=== PATIENT | female | born 1950 | race Caucasian/White ===

== ENCOUNTER → 2017-01-16 | Outpatient (CLI) | payer MEDICARE, OTHER ==
--- NOTE | 2017-01-16 13:38 | KCIC ---
DATE: 01/16/2017 EXAM: MAMMO GALILEO SCREENING BILATERAL HISTORY: Routine screening COMPARISON: Previous study from 2016, 2013 and 2012 This study was interpreted with the benefit of Computerized Aided Detection (CAD). FINDINGS: Breast Density: SCATTERED The breast parenchyma shows scattered fibroglandular densities. Breast parenchyma level B. The skin and nipples are within normal limits. There is an area of architectural distortion in the right outer breast measuring 1.0 x 0.8 cm approximately 5.7 cm from the nipple on CC view. On MLO view this is above the posterior nipple line likely at 10:00 position. Oval shaped mass with partially circumscribed margins is seen in the central right breast measuring 1.1 x 1.5 cm and approximately 4 cm from the nipple on CC view. On MLO view this is above the posterior nipple line likely at 12:00 position. Left breast show no mammographic abnormality. IMPRESSION: 1. Right upper outer breast architectural distortion is more prominent when compared to prior study and should be further evaluated with spot compression views and ultrasound. 2. Right breast oval-shaped mass likely simple cyst also seen on previous mammogram. This can be evaluated with ultrasound concurrently when evaluating the above mentioned architectural distortion. BI-RADS CATEGORY: 0 INCOMPLETE: NEED ADDITIONAL IMAGING EVAULATION AND/OR PRIOR MAMMOGRAMS FOR COMPARISON RECOMMENDED FOLLOW-UP: ADD ADDITIONAL IMAGING. Spot compression view of the right upper outer breast for evaluation of architectural distortion and ultrasound of the upper outer breast for evaluation of oval-shaped mass.. PQRS compliance statement: Patient information was entered into a reminder system with a target due date for the next mammogram. Mammography is a sensitive method for finding small breast cancers, but it does not detect them all and is not a substitute for careful clinical examination. A negative mammogram does not negate a clinically suspicious finding and should not result in delay in biopsying a clinically suspicious abnormality. "Our facility is accredited by the [employer] Mammography Program."
== END | disposition home or self-care (01) ==
LOC: KCIC MAMMO 09:01
PROVIDERS: ATTEND Family Medicine
DX: Z12.31 Encounter for screening mammogram for malignant neoplasm of breast (principal)
CPT/HCPCS: 77063; G0202; 77067

== ENCOUNTER → 2017-01-26 | Outpatient (CLI) | payer MEDICARE, OTHER ==
[~2017-01-26] MED LIST: ASPI-630 PO; OMEP20TA8 PO; SPIR25TA3 PO; TRAZ50TA15 PO
--- NOTE | 2017-01-26 14:48 | KCIC ---
DATE: 01/26/2017 EXAM: DIGITAL DIAGNOSTIC RT, BREAST RIGHT HISTORY: Architectural distortion seen on the screening examination COMPARISON: Screening examination 10 days earlier This study was interpreted with the benefit of Computerized Aided Detection (CAD). FINDINGS: Breast Density: SCATTERED The breast parenchyma shows scattered fibroglandular densities. Breast parenchyma level B. Coned compression MLO and CC images were obtained as well as an ML image. On all of the images a spiculated mass is seen corresponding to that seen on the screening examination. The mammographic features are very suggestive of malignancy. The well defined oval density immediately adjacent to the spiculated mass (medial) is not optimally appreciated on the cone compression images but is perhaps seen on the MLO image Targeted ultrasound was performed. Corresponding to the spiculated mass in the right breast is a hypoechoic shadowing mass measuring approximately 1.7 x 1.1 cm. An additional finding is not seen. The well-defined mass seen on the screening examination is likely benign. The diagnostic examination was interpreted off-site. The recommendation for biopsy of the spiculated and shadowing mass was provided by the vascular technologist sonographer who performed that portion of the exam. IMPRESSION: Spiculated mass right breast very suspect for malignancy. Ultrasound-guided biopsy advised. BI-RADS CATEGORY: 4 SUSPICIOUS ABNORMALITY-BIOPSY SHOULD BE CONSIDERED RECOMMENDED FOLLOW-UP: BIO BIOPSY RECOMMENDED PQRS compliance statement: Patient information was entered into a reminder system with a target due date soon for the next mammogram. Mammography is a sensitive method for finding small breast cancers, but it does not detect them all and is not a substitute for careful clinical examination. A negative mammogram does not negate a clinically suspicious finding and should not result in delay in biopsying a clinically suspicious abnormality. "Our facility is accredited by the [employer] Mammography Program."
== END | disposition home or self-care (01) ==
LOC: KCIC MAMMO 12:54
PROVIDERS: ATTEND Family Medicine
DX: N63.10 Unspecified lump in the right breast, unspecified quadrant (principal)
CPT/HCPCS: 76641; G0206; 77065

== ENCOUNTER → 2017-03-02 | Day surgery (SDC) | payer MEDICARE, OTHER ==
[~2017-03-02] MED LIST changes: +HYDROmorphone 2 MG/ML VIAL IV PRN; +IV RINGERS,LACTATED 1000ML 1,000 ML IV SCH; +LIDOCAINE 1% PF 2 ML VIAL. ID PRN; +MORPHINE SULFATE 2 MG/ML DISP.SYRIN. IV PRN; +ONDANSETRON PF 4 MG/2 ML VIAL. IV PRN; +PROCHLORPERAZINE 10 MG/2 ML VIAL. IV PRN; +PROPOFOL 20 ML IV ONE; +fentaNYL PF VIAL 100 MCG/2 ML VIAL IV PRN
[2017-03-02 08:05] VITALS: BP 115/62
--- NOTE | 2017-03-02 17:56 | HP ---
ADMIT DATE: 03/02/2017 REFERRING PHYSICIAN: Dr. John Faustin. REASON FOR ADMISSION: History of Rose's. HISTORY OF PRESENT ILLNESS: A 66-year-old female whose past medical history is significant for Rose's, asthma, hypertension, diverticulosis as well as recently diagnosed breast cancer, is seen for surveillance endoscopy, had Rose's dating back approximately 4 years. She has been on acid suppressive therapy since with good control of her symptoms. Risk factors for reflux are positive for caffeine, but negative for alcohol and nicotine. Weight and appetite have been stable. There has been no melena and/or hematemesis and she is otherwise without additional complaints. PAST MEDICAL HISTORY: Rose's, hypertension, endometriosis, diverticulosis, recently diagnosed breast cancer. ALLERGIES: PENICILLIN, SULFA, ACETAMINOPHEN, OXYCODONE. MEDICATIONS: Include aspirin 81 mg daily, omeprazole 20 mg daily, spironolactone 25 mg daily, trazodone 50 mg daily. FAMILY AND SOCIAL HISTORY: Significant for diabetes with her mother, esophageal and stomach cancer with paternal grandfather, MIs with her mother and paternal grandmother. REVIEW OF SYSTEMS: Per records. PHYSICAL EXAMINATION: GENERAL: Reveals a well-nourished, well-developed, female. VITAL SIGNS: Temperature is 97.1, pulse 80, respirations 20. HEENT: Normocephalic and atraumatic head. Pupils and extraocular muscles not tested. Sclerae anicteric. NECK: Supple. LUNGS: Clear. CARDIOVASCULAR: Reveals an S1, S2 without S3, S4 or appreciable murmur. ABDOMEN: Reveals soft abdomen, normal bowel sounds without appreciable splenomegaly. EXTREMITIES: Reveals no cyanosis, clubbing or edema. IMPRESSION: Rose's surveillance was recommended at this time. Risks and benefits of procedure have been previously discussed including risk of hemorrhage or perforation. She is willing to proceed at this time. Thank Dr. Faustin for allowing us to consult and participate in this patient's care. GABRIELA SMITH MD DR: BASIL/abdias JOB#: [id number] / [id number]
--- NOTE | 2017-03-05 15:12 | PATHOLOGY ---
PATHOLOGY REPORT * * * * * * * * FINAL DIAGNOSIS: Esophageal biopsies, distal esophagus: - Segments of mildly hyperplastic squamous esophageal mucosa with focally contiguous specialized columnar epithelium consistent with Rose's change. COMMENT: Sections of the distal esophageal biopsy reveal segments of mildly hyperplastic squamous esophageal mucosa with focal contiguous columnar lined mucosa showing mild chronic inflammation and focal intestinal metaplasia with goblet cells, consistent with Rose's change. There is no dysplasia or evidence of malignancy. (JPM:pit; 03/05/2017) REPORT ELECTRONICALLY SIGNED BY: Bruce Hernández M.D. DATE/TIME: 03/05/2017 15:11 * * * * * * * * GROSS PATHOLOGY: Received in formalin labeled "Brenton Henning, distal esophagus, BX," are 3 segments of hinojosa soft tissue measuring 1.5 x 0.2 x 0.2 cm in aggregate dimensions and ranging from 0.4 to 0.6 cm in maximum dimension. The specimen is submitted entirely in cassette A1. (TSD; 03/02/2017) INITIAL CPT CODE(S): A; 64754 Professional services performed [place] [address] Technical services performed by [facility] at [address] [place] [address], [facility] [address] [address]. SPECIMEN(S) RECEIVED: A.Distal esophagus biopsy CLINICAL HISTORY: History of Rose's PATIENT: BRENTON HENNING /AGE: 408/13/1950 (Age: 66) PATIENT #: [id number] ALT CASE #: SPECIMEN COLLECTION DATE: 03/02/2017 SPECIMEN RECEIVED DATE: 03/02/2017 [facility] - [address] [place] [address] - PHONE: [phone] * * * END OF REPORT * * *
== END | disposition home or self-care (01) ==
LOC: ENDOS 06:29
PROVIDERS: ATTEND Internal Medicine Gastroenterology
DX: K22.70 Barrett's esophagus without dysplasia (principal); K29.50 Unspecified chronic gastritis without bleeding; I10 Essential (primary) hypertension; Z88.0 Allergy status to penicillin; Z88.2 Allergy status to sulfonamides; Z88.8 Allergy status to other drugs, medicaments and biological substances; Z83.3 Family history of diabetes mellitus; Z80.0 Family history of malignant neoplasm of digestive organs; Z85.3 Personal history of malignant neoplasm of breast
CPT/HCPCS: 43239; 88305; J2704

== ENCOUNTER → 2018-05-24 | Outpatient (CLI) | payer MEDICARE, OTHER ==
[2017-03-02 08:05] VITALS: BP 115/62
[~2018-05-24] MED LIST changes: -HYDROmorphone 2 MG/ML VIAL IV PRN; -IV RINGERS,LACTATED 1000ML 1,000 ML IV SCH; -LIDOCAINE 1% PF 2 ML VIAL. ID PRN; -MORPHINE SULFATE 2 MG/ML DISP.SYRIN. IV PRN; -ONDANSETRON PF 4 MG/2 ML VIAL. IV PRN; -PROCHLORPERAZINE 10 MG/2 ML VIAL. IV PRN; -PROPOFOL 20 ML IV ONE; -SPIR25TA3 PO; +SPIR25TA5 PO; +TRAZ-85 PO; -TRAZ50TA15 PO; -fentaNYL PF VIAL 100 MCG/2 ML VIAL IV PRN
--- NOTE | 2018-05-24 15:32 | KCIC ---
CERVICAL SPINE 5V History: Acute neck pain, right shoulder pain Comparison: None. Findings: 5 views cervical spine are submitted. There is adequate alignment of lateral masses C1 relative to C2. There is mild reversal of the lordotic curvature centered near C4-5. There is mild to moderate degenerative disc disease C6-7, to lesser degree C4-5 and C5-6. There is spondylosis at the same levels. There is very mild grade 1 anterior spondylolisthesis at C3-C4. There is multilevel facet degenerative change. There is also uncovertebral degenerative change. There is neural foramina compromise greatest on the left C5-6 and C6-7. Impression: 1. There is multilevel degenerative disc disease greatest C6-7 and to lesser degree C5-C6 and C4-5. There is multilevel facet and uncovertebral degenerative change. Electronically signed by: Darron Avilez MD (05/24/2018 3:27 PM) [id number]
== END | disposition home or self-care (01) ==
LOC: KCIC 13:55
PROVIDERS: ATTEND Family Medicine
DX: M50.321 Other cervical disc degeneration at C4-C5 level (principal); M47.812 Spondylosis without myelopathy or radiculopathy, cervical region; M43.12 Spondylolisthesis, cervical region; M25.511 Pain in right shoulder; Z88.0 Allergy status to penicillin; Z88.2 Allergy status to sulfonamides
CPT/HCPCS: 72050

== ENCOUNTER → 2019-11-05 | Outpatient (CLI) | payer MEDICARE, OTHER ==
[2017-03-02 08:05] VITALS: BP 115/62
[~2019-11-05] MED LIST changes: +TRAZ-118 PO; -TRAZ-85 PO
--- NOTE | 2019-11-05 13:11 | KCIC ---
EXAM: DUAL ENERGY X-RAY ABSORPTIOMETRY (DEXA). HISTORY: Postmenopausal screening. FINDINGS: The lowest measured T-score is -1.1 in the left hip, based on a bone mineral density of 0.806 g/cm^2. Refer to the worksheets for full detail. No comparison examinations are available. IMPRESSION: Low bone mass. Bone mineral density yields a T-score between -1.0 and -2.5. Fracture risk is increased. FRAX was not calculated. METHODOLOGY: Dual energy x-ray absorptiometry was performed to measure bone mineral density. The following analysis is based on the 2019 Official Positions of the International Society for Clinical Densitometry: Measurements of the hips and the average of L1-L4 are preferred. When the spine and/or hip cannot be feasibly measured or interpreted, or in the setting of hyperparathyroidism, distal radial bone mineral density may be measured. The lumbar spine T-score is based on the average bone mineral density of L1-L4. In the setting of artifact or anatomic abnormality, some lumbar levels may be excluded, and the remaining levels used for calculation. A single lumbar level is not used for diagnosis, and if only a single level is available for assessment, another anatomic site will be used to assign a diagnosis. The hip T-score is based on the bone mineral density measurement of the femoral neck or total proximal femur of either side, whichever is lowest. Bilateral mean values are not used for diagnosis. The forearm T-score is derived from 33% of the distal radius of the nondominant forearm. For postmenopausal and perimenopausal women, and men age 50 or older, of all ethnic groups, T-scores are calculated through comparison of the current measurement with the NHANES III database standard for females aged 20-29 years. The lowest T-score of the evaluated anatomic sites is used to assign a diagnosis based on the World Health Organization densitometric classification. In premenopausal females and males younger than age 50, a Z-score is calculated based on population specific reference data for patient sex and self-reported ethnicity. Electronically signed by: Juliocesar Myers MD (11/05/2019 1:09 PM) [id number]
== END ==
LOC: KCIC DEXA 12:33
PROVIDERS: ATTEND Family Medicine
DX: M85.80 Other specified disorders of bone density and structure, unspecified site (principal); N95.9 Unspecified menopausal and perimenopausal disorder
CPT/HCPCS: 77080

== ENCOUNTER → 2020-03-29 | Outpatient (CLI) | payer MEDICARE, OTHER ==
[2017-03-02 08:05] VITALS: BP 115/62
[~2020-03-29] MED LIST changes: +CONTRAST GIVEN. MC PRN; +IOHEXOL 240 MG/ML 50ML VIAL. PO ONE; +IOHEXOL 300 MG/ML 100ML VIAL. IV ONE
--- NOTE | 2020-03-29 12:36 | KCIC ---
EXAM: Abdomen and pelvis CT with intravenous contrast. HISTORY: Diverticulitis. TECHNIQUE: Computed tomographic images of the abdomen and pelvis were obtained following the administ ration of intravenous contrast. Multiplanar reformatting was performed. *One or more of the following individualized dose reduction techniques were utilized for this examina tion: 1. Automated exposure control. 2. Adjustment of the mA and/or kV according to patient size. 3. Use of iterative reconstruction technique. COMPARISON: None. FINDINGS: Evaluation of the lower thorax demonstrates no infiltrate or pleural effusion. There are sm all hepatic cysts. There is mild biliary ductal dilatation likely due to reservoir effect status post cholecystectomy. The pancreas, spleen, adrenal glands and kidneys are unremarkable. The appendix is absent. There is colonic diverticulosis. There is superimposed segmental wall thicken ing and surrounding stranding involving the proximal sigmoid colon due to diverticulitis. No abscess or free air is seen. The aorta is normal in caliber. There is no lymphadenopathy. There is a small right ventral abdominal wall fat-containing hernia. The uterus is absent. The urinary bladder is unremarkable. There are deg enerative changes throughout the spine. There is no suspicious osseous lesion. IMPRESSION: 1. Acute diverticulitis involving the proximal sigmoid colon. No abscess or free air is seen. 2. Small hepatic cysts. Follow-up is not routinely recommended for simple appearing cysts. 3. Fat-containing right ventral abdominal wall hernia. Electronically signed by: Lexie Jiang MD (03/29/2020 12:33 PM) [id number]
== END ==
LOC: KCIC CT 08:56
PROVIDERS: ATTEND Family Medicine
DX: K57.30 Diverticulosis of large intestine without perforation or abscess without bleeding (principal); K57.32 Diverticulitis of large intestine without perforation or abscess without bleeding; K76.89 Other specified diseases of liver; K43.9 Ventral hernia without obstruction or gangrene; Z90.710 Acquired absence of both cervix and uterus
CPT/HCPCS: 74177; 82565; Q9966; Q9967